=== PATIENT | male | born 1950 | race Caucasian/White ===

== ENCOUNTER 2020-06-09 12:58 | Outpatient (REF) | payer OTHER, SELFPAY ==
[2020-06-09 18:15] LABS: Alanine Aminotransferase 41 U/L (0-40); Albumin Level 4.3 g/dL (3.5-5.0); Alkaline Phosphatase 68 U/L (39-117); Anion Gap 14 (12-20); Aspartate Amino Transferase 27 U/L (5-37); Bilirubin Total 2.4 mg/dL (0.0-1.0); Blood Urea Nitrogen 21 mg/dL (9-16); Calcium 8.6 mg/dL (8.4-10.2); Carbon Dioxide 27 mmol/L (22-29); Chloride 101 mmol/L (96-108); Cholesterol 225 mg/dL; Estimated Glomerular Filt Rate > 60; Glucose Fasting 100 mg/dL (60-99); HDL Cholesterol 56 mg/dL; LDL Cholesterol Calculated 154 mg/dl; Potassium 4.7 mmol/l (3.3-5.1); Sodium 137 mmol/L (135-145); Total Protein 7.2 g/dL (6.5-8.0); Triglycerides 78 mg/dL
[2020-06-09 18:50] LABS: Prostate Specific Antigen 2.05 ng/mL (<0.05-4.0)
[2020-06-10 03:26] LABS: Estimated Average Glucose 108 mg/dL; Hemoglobin A1c % 5.4 %
== END 2020-06-09 12:59 | disposition home or self-care (01) ==
LOC: HO.MANLDS 12:58
PROVIDERS: PCP Internal Medicine; Visit Provider Internal Medicine
DX: R73.01 Impaired fasting glucose (principal); E78.00 Pure hypercholesterolemia, unspecified; N40.1 Benign prostatic hyperplasia with lower urinary tract symptoms
CPT/HCPCS: 80053; 80061; 83036; 84153

== ENCOUNTER 2020-07-17 12:44 | Outpatient (REF) | payer OTHER, MEDICARE, SELFPAY ==
--- NOTE | 2020-07-17 12:50 | US_ITS ---
EXAMINATION: US PELVIS LIMITED (BLADDER) CLINICAL INFORMATION: Incomplete bladder emptying. COMPARISON: None TECHNIQUE: Real-time imaging of the bladder. FINDINGS: Prostate gland measures approximately 4.3 x 3.5 x 4 cm. Prostate volume is approximately 32 mL. The urinary bladder is distended to an estimated volume of 305 mL. Mild amount of floating debris is present in the bladder lumen. No bladder calculi. No evidence of bladder wall thickening, mass or diverticulum. Both ureteral jets are visualized. After voiding, there is a bladder residual of 101 mL. US/US bladder IMPRESSION: * There is urinary retention with post void bladder residual of 101 mL. * Prostate gland measures approximately 4.3 x 3.5 x 4 cm.
== END 2020-07-17 12:45 | disposition home or self-care (01) ==
LOC: HO.HMGCX 12:44
PROVIDERS: PCP Internal Medicine; Visit Provider Internal Medicine
DX: R39.14 Feeling of incomplete bladder emptying (principal)
CPT/HCPCS: 76857

== ENCOUNTER 2021-09-25 07:59 | Outpatient (REF) | payer MEDICARE, OTHER, SELFPAY ==
[2021-09-25 11:34] LABS: MANUAL DIFF FLAG NO
[2021-09-25 11:48] LABS: Basophils Percent Auto 0.3 % (0-2); Eosinophils Absolute Auto 0.2 X10*3/uL (0.0-0.4); Eosinophils Percent Auto 2.2 % (0-4); Hematocrit 50.6 % (42.0-52.0); Hemoglobin 17.1 g/dl (14.0-18.0); Imm Gran Abs Auto 0.02 X10*3/uL (0.00-0.03); Imm Gran Pct Auto 0.3 % (0.0-0.4); Lymphocytes Absolute Auto 1.5 X10*3/uL (1.2-4.9); Lymphocytes Percent Auto 22.6 % (20-40); Mean Corpuscular HGB Conc 33.8 g/dl (31.0-36.0); Mean Corpuscular Hemoglobin 29.3 pg (27.0-33.0); Mean Corpuscular Volume 86.8 fL (80.0-98.0); Mean Platelet Volume 10.5 fL (9.4-12.4); Monocytes Absolute Auto 0.8 X10*3/uL (0.1-1.2); Monocytes Percent Auto 11.6 % (2-11); Neutrophils Absolute Auto 4.3 x10*3/uL (2.0-8.3); Platelet Count 228 X10*3/uL (160-400); Red Blood Count 5.83 X10*6/uL (4.60-5.80); Red Cell Distribution Width 12.8 % (11.0-16.0); White Blood Count 6.8 X10*3/uL (4.8-10.8)
[2021-09-25 12:17] LABS: Alanine Aminotransferase 31 U/L (0-40); Alkaline Phosphatase 59 U/L (39-117); Amylase 71 U/L (28-100); Anion Gap 13 (12-20); Aspartate Amino Transferase 19 U/L (5-37); Bilirubin Total 1.5 mg/dL (0.0-1.0); Blood Urea Nitrogen 22 mg/dL (9-16); Calcium 9.2 mg/dL (8.4-10.2); Carbon Dioxide 25 mmol/L (22-29); Chloride 106 mmol/L (96-108); Cholesterol 228 mg/dL; Estimated Glomerular Filt Rate > 60; Glucose Fasting 118 mg/dL (60-99); HDL Cholesterol 44 mg/dL; LDL Cholesterol Calculated 162 mg/dl; Lipase 47 U/L (8-78); Potassium 4.5 mmol/L (3.3-5.1); Sodium 139 mmol/L (135-145); Total Protein 6.9 g/dL (6.5-8.0); Triglycerides 111 mg/dL
[2021-09-25 12:21] LABS: Estimated Average Glucose 117 mg/dL; Hemoglobin A1c % 5.7 %
[2021-09-25 12:24] LABS: Prostate Specific Antigen 2.34 ng/mL (<0.05-4.0)
== END 2021-09-25 08:00 | disposition home or self-care (01) ==
LOC: HO.MANLDS 07:59
PROVIDERS: PCP Physician Assistant; Visit Provider Physician Assistant
DX: Z12.5 Encounter for screening for malignant neoplasm of prostate (principal); R10.11 Right upper quadrant pain; N40.1 Benign prostatic hyperplasia with lower urinary tract symptoms; E78.2 Mixed hyperlipidemia; R73.01 Impaired fasting glucose
CPT/HCPCS: 36415; 80053; 80061; 82150; 83036; 83690; 84153; 85025

== ENCOUNTER 2021-10-20 07:50 | Outpatient (REF) | payer MEDICARE, OTHER, SELFPAY ==
--- NOTE | ~2021-10-20 | US_ITS ---
EXAMINATION: US ABDOMEN COMPLETE CLINICAL INFORMATION: Right upper quadrant pain. COMPARISON: Bladder ultrasound dated 07/17/2020. TECHNIQUE: Real-time imaging of the abdominal viscera. FINDINGS: PANCREAS: Not well visualized due to bowel gas. ABDOMINAL AORTA: There is atherosclerotic disease. The proximal, mid, and distal segments are normal in caliber. INFERIOR VENA CAVA: Visualized portions are normal. LIVER: Liver echotexture is increased. The liver is normal in size. The liver contour is normal. No focal hepatic lesion. There is no intrahepatic biliary duct dilatation seen. GALLBLADDER: The gallbladder is physiologically distended. Multiple mobile gallstones are present. No evidence of gallbladder wall thickening or pericholecystic fluid. COMMON BILE DUCT: Normal in caliber measuring 0.2 cm in diameter. RIGHT KIDNEY: There are 2 cysts, largest measuring 2 cm in the midpole. No hydronephrosis or renal calculi. The kidney measures 10.5 cm in maximum dimension. LEFT KIDNEY: There are small peripelvic cysts, largest measuring 1 cm. No hydronephrosis or renal calculi. The kidney measures 11.1 cm in maximum dimension. SPLEEN: Normal. The spleen measures 9.7 cm in maximum dimension. FREE FLUID: None. US/US abdomen complete IMPRESSION: Echogenic liver probably representing fatty infiltration. Gallstones. Bilateral renal cysts. Limited visualization of the pancreas.
== END 2021-10-20 07:51 | disposition home or self-care (01) ==
LOC: HO.US 07:50
PROVIDERS: PCP Internal Medicine; Visit Provider Physician Assistant
DX: R10.11 Right upper quadrant pain (principal)
CPT/HCPCS: 76700

== ENCOUNTER 2022-04-21 08:22 | Outpatient (REF) | payer MEDICARE, OTHER, SELFPAY ==
[2022-04-21 11:47] LABS: Alanine Aminotransferase 51 U/L (0-40); Albumin Level 4.3 g/dL (3.5-5.0); Alkaline Phosphatase 62 U/L (39-117); Anion Gap 17 (12-20); Aspartate Amino Transferase 26 U/L (5-37); Bilirubin Total 1.9 mg/dL (0.0-1.0); Blood Urea Nitrogen 25 mg/dL (9-16); Calcium 9.8 mg/dL (8.4-10.2); Carbon Dioxide 26 mmol/L (22-29); Chloride 104 mmol/L (96-108); Cholesterol 239 mg/dL; Estimated Glomerular Filt Rate > 60; Glucose Random 136 mg/dL (60-115); HDL Cholesterol 50 mg/dL; LDL Cholesterol Calculated 175 mg/dl; Potassium 5.2 mmol/L (3.3-5.1); Sodium 142 mmol/L (135-145); Total Protein 7.1 g/dL (6.5-8.0); Triglycerides 72 mg/dL
[2022-04-21 11:48] LABS: Estimated Average Glucose 111 mg/dL; Hemoglobin A1c % 5.5 %
[2022-04-21 12:02] LABS: Vitamin B12 287 pg/mL (200-900)
[2022-04-21 12:03] LABS: Prostate Specific Antigen 2.58 ng/mL (<0.05-4.0); Vitamin D 25-OH Total 32.5 ng/mL (>30)
== END 2022-04-21 08:23 | disposition home or self-care (01) ==
LOC: HO.MANLDS 08:22
PROVIDERS: Visit Provider Internal Medicine
DX: Z00.00 Encounter for general adult medical examination without abnormal findings (principal); E78.2 Mixed hyperlipidemia; R73.01 Impaired fasting glucose; N40.1 Benign prostatic hyperplasia with lower urinary tract symptoms; Z12.5 Encounter for screening for malignant neoplasm of prostate
CPT/HCPCS: 36415; 80053; 80061; 82306; 82607; 83036; 84153

== ENCOUNTER 2023-08-31 09:21 | Outpatient (REF) | payer MEDICARE, SELFPAY ==
[2023-08-31 12:44] LABS: MANUAL DIFF FLAG NO
[2023-08-31 12:48] LABS: Basophils Percent Auto 0.3 % (0-2); Eosinophils Absolute Auto 0.2 X10*3/uL (0.0-0.4); Eosinophils Percent Auto 3.1 % (0-4); Hematocrit 49.2 % (42.0-52.0); Hemoglobin 16.5 g/dl (14.0-18.0); Imm Gran Abs Auto 0.02 X10*3/uL (0.00-0.03); Imm Gran Pct Auto 0.3 % (0.0-0.4); Lymphocytes Absolute Auto 1.3 X10*3/uL (1.2-4.9); Lymphocytes Percent Auto 20.4 % (20-40); Mean Corpuscular HGB Conc 33.5 g/dl (31.0-36.0); Mean Corpuscular Hemoglobin 29.3 pg (27.0-33.0); Mean Corpuscular Volume 87.2 fL (80.0-98.0); Mean Platelet Volume 10.4 fL (9.4-12.4); Monocytes Absolute Auto 0.7 X10*3/uL (0.1-1.2); Monocytes Percent Auto 11.5 % (2-11); Neutrophils Absolute Auto 4.1 x10*3/uL (2.0-8.3); Neutrophils Percent Auto 64.4 % (45-73); Platelet Count 227 X10*3/uL (160-400); Red Blood Count 5.64 X10*6/uL (4.60-5.80); Red Cell Distribution Width 12.7 % (11.0-16.0); White Blood Count 6.4 X10*3/uL (4.8-10.8)
[2023-08-31 12:59] LABS: Estimated Average Glucose 108 mg/dL; Hemoglobin A1C 151.6691 umol/L; Hemoglobin A1c % 5.4 % (<6.0)
[2023-08-31 13:34] LABS: Erythrocyte Sedimentation Rate 3 MM/HR (0-15)
[2023-08-31 13:42] LABS: Anion Gap 12 (12-20)
[2023-08-31 13:47] LABS: Alanine Aminotransferase 35 U/L (0-40); Albumin Level 4.1 g/dL (3.5-5.0); Alkaline Phosphatase 59 U/L (39-117); Aspartate Amino Transferase 20 U/L (5-37); Bilirubin Total 1.7 mg/dL (0.0-1.0); Blood Urea Nitrogen 22 mg/dL (9-16); C Reactive Protein 0.16 mg/dL (< or = 0.50); Calcium 9.5 mg/dL (8.4-10.2); Carbon Dioxide 25 mmol/L (22-29); Chloride 106 mmol/L (96-108); Estimated Glomerular Filt Rate > 60; Gamma Glutamyl Transpeptidase 23 U/L (11-51); Glucose Random 112 mg/dL (60-115); Iron 157 mcg/dL (45-160); Percent Iron Saturation 58 % (15-50); Potassium 4.1 mmol/L (3.3-5.1); Sodium 139 mmol/L (135-145); Total Iron Binding Capacity 271 mcg/dL (228-428); Unsaturated Iron Binding 114 ug/dL
[2023-08-31 13:58] LABS: Amylase 69 U/L (28-100)
[2023-08-31 14:03] LABS: Ferritin 385 ng/mL (20-250)
[2023-09-01 08:28] LABS: HBS Num1 0.24 mIU/mL (0-7.99); HBc Num1 0.07 S/CO (0.00-0.79); HBsAGNum1 0.39 S/CO (0.00-0.99); Hepatitis A Antibody IgM 0.12 Index (0-0.79); Hepatitis B Core Antibody Nonreactive (Nonreactive); Hepatitis B Surface Antigen Negative (Negative); ~HepC Num1 0.06 S/CO (0.00-0.79); ~Hepatitis A Antibody IgM Nonreactive (Nonreactive); ~Hepatitis B Surface Antibody NONREACTIVE (Nonreactive); ~Hepatitis C Antibody Nonreactive (Nonreactive)
== END 2023-08-31 09:22 | disposition home or self-care (01) ==
LOC: HO.MANLDS 09:21
PROVIDERS: Visit Provider Physician Assistant
DX: R10.11 Right upper quadrant pain (principal)
CPT/HCPCS: 36415; 80053; 82150; 82728; 82977; 83036; 83540; 85025; 85652; 86140; 86704; 86706; 86709; 86803; 87340

== ENCOUNTER 2024-09-19 11:10 | Outpatient (REF) | payer MEDICARE, SELFPAY ==
--- OUTSIDE RECORDS SUMMARY | 2024-09-19 13:09 | XMS_ITS | Data Portability ---
Author Organization [facility] Service Address [address] [place] [address] Assessment Encounter Date Assessment Date Assessment LastModified by Organization Details LastModified Time 11/16/2021 11/16/2021 Patient agreed and verbally consents to this audio and video Telehealth appt via a secure platform [email or web address] Not available 11/16/2021 09:50:37 08/30/2023 08/30/2023 Patient agreed and verbally consents to this audio and video Telehealth appt via a secure platform [email or web address] Not available 08/30/2023 16:39:13 Plan of Treatment Reminders Order Date Submit Date Provider Last Modified By Organization Details Last Modified Time Details Appointments ANNUAL EXAM 2024 09:30A M DR WINTER Not available Not available Not available Lab HbA1c (hemoglob in A1c), blood 2021 [facility], [address] [place] [address], [id number], 04/20/2022 12:30:55 lipid panel, blood 2021 [facility], [address] [place] [address], [id number], 04/20/2022 12:30:55 CMP, serum or plasma 2021 [facility], [address] [place] [address], [id number], 04/22/2022 12:41:19 vitamin D, 25-hydrox y, total, serum 2021 [facility], [address] [place] [address], [id number], 04/20/2022 12:30:55 vitamin B12, serum 2021 [facility], [address] [place] [address], [id number], 04/20/2022 12:30:55 PSA, serum or plasma 2021 [facility], [address] [place] [address], [id number], 04/20/2022 12:30:55 amylase + lipase, serum 2023 [facility], [address] [place] [address], [id number], 08/30/2023 16:39:44 C reactive protein, QN, serum or plasma 2023 [facility], [address] [place] [address], [id number], 08/30/2023 16:39:43 ESR (erythroc yte sedimenta tion rate), blood 2023 [facility], [address] [place] [address], [address], 08/30/2023 16:39:43 gamma-glu tamyl transfera se (ggt), serum 2023 024 [facility], [address] [place] [address], [address], 08/30/2023 16:39:44 iron + TIBC + ferritin, serum 2023 024 [facility], [address] [place] [address], [address], 08/30/2023 16:39:43 CMP, serum or plasma 2023 024 [facility], [address] [place] [address], [place], [address], 09/01/2023 12:38:39 hemoglobi n A1c, QN, blood 2023 024 [facility], [address] [place] [address], [address], 08/30/2023 16:39:43 CBC w/ auto diff 2023 024 [facility], [address] [place] [address], [id number], 08/30/2023 16:39:43 hepatitis panel (A+B+C), acute, serum 2023 024 [facility], [address] [place] [address], [address], 08/30/2023 16:39:43 Referral dermatolo gist referral 2021 [facility], [address] [place], [address], 05/10/2022 16:31:47 dermatolo gist referral 2021 [facility], [address] [facility] [address], [address], 06/14/2022 08:28:06 Procedures None recorded. Surgeries None recorded. Imaging CT, abdomen + pelvis, w/o contrast 2021 [email or web address] 10 [facility], [address] [place] [address], [address], 05/18/2022 09:55:11 CT, abdomen + pelvis, w/o contrast - hx of cholectom y 2023 [facility], [address] [place], [address], 08/31/2023 09:32:32 Medication Orders tamsulosi n 0.4 mg capsule 2021 022 [email or web address] [id number], [address] [place], [address], 05/14/2022 12:11:41 Patient TargetsNo targets recorded. Patient Instructions Encounter Date Encounter Id Patient Instructions Last Modified By Organization Details Last Modified Time 04/20/2022 [id number] prediabetes: car e instructions Not available 04/20/2022 12:26:58 actinic keratosis: care instructions Not available 04/20/2022 12:26:57 benign prostatic hyperplasia: care instructions Not available 04/20/2022 12:26:58 Reason for Referral Intraoperative Neuro Tech Referral for A ctinic keratosis Referring Physician: Robert Winter, Internal Medicine, Encounter Date: 04/20/2022 Intraoperative Neuro Tech Referral for S kin lesion new skin lesion on the left wrist, changing shape, irregular shape, possible SK Referring Physician: Lulu Hernandez, Internal Medicine, Encounter Date: 05/14/2022 Results Created Date Observation Date Name Description Value Unit Range Abnormal Flag Note LastModifiedBy Organization Detail LastModifiedTime 10/21/19 22 10/20/2021 US, abdom en No observ ation record ed. [facility] (Medical Records) [address] [place], [address], 10/23/2021 16:26:54 10/30/19 22 10/29/2021 XR, chest , 2 view No observ ation record ed. [email or web address] Not Available 2021 06:58:32 11/04/19 22 10/29/2021 XR, chest , 2 view No observ ation record ed. [email or web address] Not Available 2021 10:27:02 05/26/20 22 05/26/2022 CT, abdom en + pelvi s, w/o contr ast No observ ation record ed. [email or web address] [facility] [address] [place], [address], 05/26/2022 15:14:29 05/26/20 22 05/26/2022 CT, abdom en + pelvi s, w/o contr ast No observ ation record ed. [facility] [address], [place], [address], 05/26/2022 15:14:29 09/08/19 24 09/08/2023 CT, abdom en + pelvi s, w/o contr ast No observ ation record ed. [address] [place], [address], 10/04/2023 12:00:01 09/08/19 24 09/08/2023 CT, abdom en + pelvi s, w/ contr ast No observ ation record ed. [facility] [address] [place], [address], 10/04/2023 12:00:01 09/22/19 24 09/21/2023 MRI, liver , w/wo contr ast No observ ation record ed. [facility] [address] [place] [address], MARIYA Beard, [address], 10/04/2023 12:00:01 Result Notes None recorded. Problems Name Problem SNOMED Code Status Onset Date Resolution Date Notes Provider Name and Address Organization Details Recorded Time Hyperchole sterolemia 38543979 Active 2018 Not Available [facility] 3 12:34:17 Impaired fasting glycemia 123526467 Active 2018 Not Available [facility] 3 12:34:18 Benign prostatic hyperplasi a 778199880 Active 2018 Not Available [facility] 3 12:34:18 Acute bronchitis 73018928 Active 2021 Not Available [facility] 3 12:34:17 Cough 82178230 Active 04/11/ 2022 Not Available [facility] 3 12:34:18 COVID-19 933410493 Active 2021 Not Available [facility] 3 12:34:18 Actinic keratosis 668527827 Active 2021 Not Available [facility] 3 12:34:17 Gilbert's syndrome 41511647 Active 2021 Not Available [facility] 3 12:34:18 Abdominal pain 30968224 Active 2021 Not Available [facility] 3 12:34:18 Skin lesion 82790720 Active 2021 Not Available [facility] 3 12:34:18 Cholelithi asis without obstructio n 26345230 Active 2021 Not Available [facility] 3 12:34:18 Non-alcoho lic fatty liver 979265496 Active 2023 MONSERRAT YBARRA [address] [place], [address], [facility] 4 16:43:17 Diverticul itis 203322023 Active 2023 MONSERRAT YBARRA [address] [place], [address], [facility] 4 13:26:02 Lesion of liver 311207483 Active 2023 MONSERRAT YBARRA [address] [place], [address], [facility] 4 13:26:19 Problem Notes None recorded. Procedures Surgical History Date Name Laterality Status Provider Name and Address Organization Details Recorded Time cholecystectomy completed MONSERRAT LARIOS [address] [place], [address], [facility] 08/30/2023 16:39:52 Imaging Results Imaging Date Name Status LastModified by Organiz ation Details LastModified Time 10/20/2021 US, abdomen completed [facility] (Medical Records) [address] [place], [address], 10/23/2021 16:26:54 10/29/2021 XR, chest, 2 view completed [email or web address] Information not available 10/30/2021 06:58:32 10/29/2021 XR, chest, 2 view completed [email or web address] Information not available 11/03/2021 10:27:02 05/26/2022 CT, abdomen + pelvis, w/o contrast completed [facility] [address] [place], [address], 05/26/2022 15:14:29 05/26/2022 CT, abdomen + pelvis, w/o contrast completed [facility] [address] [place], [address], 05/26/2022 15:14:29 09/08/2023 CT, abdomen + pelvis, w/o contrast completed [address] [place], [address], 10/04/2023 12:00:01 09/08/2023 CT, abdomen + pelvis, w/ contrast completed [address] [facility] [address], [place], [address], 10/04/2023 12:00:01 09/21/2023 MRI, liver, w/wo contrast completed [address] [facility] [address] [place] [address], [place], [address], 10/04/2023 12:00:01 Procedure Notes None recorded. Medical Equipment None Reported. Allergies No known drug allergies Medications Name Sig Start Date Stop Date Status Note LastModified by Organization Details LastModified Time prednisone 20 mg tablet TAKE 3 TABLETS BY MOUTH EVERY DAY FOR 5 DAYS 11/16 completed Not Available Not Available Not Available ciprofloxac in 500 mg tablet TAKE 1 TABLET BY MOUTH EVERY 12 HOURS FOR 5 DAYS 10/04 completed Not Available Not Available Not Available tamsulosin 0.4 mg capsule TAKE 2 CAPSULES BY MOUTH EVERY DAY active Not Available Not Available No t Available benzonatate 100 mg capsule TAKE 2 CAPSULES BY MOUTH 3 TIMES A DAY NEEDED FOR COUGH. 11/16 completed Not Available Not Available Not Available betamethaso ne dipropionat e 0.05 % topical cream APPLY SPARINGLY TO AFFECTED AREA EVERY DAY 04/20 completed Not Available Not Available Not Available ibuprofen 600 mg tablet TAKE 1 TABLET BY MOUTH THREE TIMES A DAY active Not Available Not Available No t Available albuterol sulfate HFA 90 mcg/actuati on aerosol inhaler INHALE 2 PUFFS INTO THE LUNGS EVERY 4 HOURS NEEDED FOR WHEEZE 10/04 completed Not Available Not Available Not Available amoxicillin 875 mg-potassiu m clavulanate 125 mg tablet TAKE 1 TABLET BY MOUTH 2 TIMES A DAY FOR 10 DAYS. TAKE W FOOD, YOGURT, PROBIOTIC S. FINISH ALL. 11/16 completed Not Available Not Available Not Available oxycodone 5 mg tablet TAKE 1 TABLET BY MOUTH EVERY 4 HOURS NEEDED FOR SEVERE PAIN 10/04 completed Not Available Not Available Not Available Mona Gutierrez [facility] spacer USE DIRECTED 04/20 completed Not Available Not Available Not Available Shingrix (PF) 50 mcg/0.5 mL intramuscul ar suspension, kit 07/09 completed Not Available Not Available Not Available Fluzone High-Dose Quad 2020-21 (PF) 240 mcg/0.7 mL IM syringe 06/09 completed Not Available Not Available Not Available Flowflex COVID-19 Antigen Home Test kit COVID TEST 04/20 completed Not Available Not Available Not Available Paxlovid 300 mg (150 mg x 2)-100 mg tablets in a dose pack TAKE 3 TABLETS TWICE A DAY BY ORAL ROUTE FOR 5 DAYS. 04/20 completed Not Available Not Available Not Available Vitals Date Recorded Body height Body mass index (BMI) Body weight Heart rate Oxygen saturation Oxygen saturation in Arterial blood by Pulse oximetry Systolic blood pressure Diastolic blood pressure Provider Name and Address Organization Details Last Updated DateTime 2 174.63 cm 24.1 kg/m2 08175.9 6 g 84 /min 98 % 98 % 132 mm[Hg] 72 mm[Hg] [facility] 2 12:03:45 Date Recorded Body height Oxygen saturation Oxygen saturation in Arterial blood by Pulse oximetry Heart rate Systolic blood pressure Diastolic blood pressure Provider Name and Address Organization Details Last Updated DateTime 2 174.63 cm 98 % 98 % 82 /min 122 mm[Hg] 70 mm[Hg] Karli Murphy [facility] 2 11:48:32 Date Recorded Body height Body mass index (BMI) Body weight Heart rate Oxygen saturation Oxygen saturation in Arterial blood by Pulse oximetry Systolic blood pressure Diastolic blood pressure Provider Name and Address Organization Details Last Updated DateTime 4 174.63 cm 22.9 kg/m2 06477.1 5 g 98 /min 98 % 98 % 122 mm[Hg] 76 mm[Hg] Robert Winter, DO [address] [place], [address], [facility] 4 11:51:19 Social History Question Answer Notes LastModified by Organizat ion Details LastModified Time Tobacco Smoking Status Never Smoker Not Available [facility] 06/10/2020 03:36:24 What Was The Date Of Your Most Recent Tobacco Screening? 10/04/2023 Information not available 10/04/2023 Sex: Unknown Functional Status None recorded. Mental Status None recorded. Family History Nothing Reported Notes:Family history CAD- fa shannan member not noted in paper chart Medical History No medical history recorded. Immunizations Vaccine Type Date Status Note Provider Nam e and Address Organization Details Recorded Time COVID-19, mRNA, LNP-S, PF, 100 mcg/0.5mL dose or 50 mcg/0.25mL dose 1 completed Karli pyle [facility] 04/10/2021 16:09:56 COVID-19, mRNA, LNP-S, PF, 100 mcg/0.5mL dose or 50 mcg/0.25mL dose 1 completed Karli pyle [facility] 04/10/2021 16:10:05 zoster, unspecified formulation 3 completed Isha pyle [facility] 10/08/2022 13:35:00 Influenza, split virus, quadrivalent, preservative 9 completed Isha pyle [facility] 07/25/2019 15:46:22 Influenza, split virus, quadrivalent, preservative 0 completed Dwight Winter lashanda [facility] 06/09/2020 11:48:23 zoster recombinant 0 completed Isha Meadows [facility] 07/09/2020 13:39:32 Past Encounters Encounter ID Performer Location Encounter Start Date Encounter Closed Date Diagnosis/Indication Diagnosis SNOMED-CT Code Diagnosis ICD10 Code Diagnosis Note [id number] Robert Winter [facility] [address] [facility], [place] [address] 10/31/2018 10:40:34 10/31/2018 11:54:38 Right lower quadrant pain 381237385 R10.31 will order his UA and US of his renal area will also check lab no fever or chill assoc with this Acute uppe r respiratory infection 14706955 J06.9 will cont to tx conserv as we feel this is viral recc he use mucinex Benign pro static hyperplasia 179318528 N40.1 [id number] Robert Winter [facility] [address] [facility],[place] [address] 12/06/2018 11:50:17 12/06/2018 13:46:09 Impaired fasting glycemia 518915810 R73.01 currently completely stable no elevations Hypercholesterolemia 136 69388 E78.00 also good and ok until next year Benign pro static hyperplasia 858452776 N40.1 flomax [id number] Robert Winter [facility] [address] [facility], [place] [address] 07/25/2019 15:40:22 07/25/2019 16:22:49 Ophthalmic migraine 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.B0 acute case has never had before seen in [place] CT neg will ask neuro for eval Cough 81562410 R05 no major findings will tx conserv and follow as necess [id number] Robert Winter [facility] [address] [facility],[place] [address] 06/09/2020 11:49:26 06/09/2020 12:11:53 Impaired fasting glycemia 291131683 R73.01 currently completely stable no elevations Hypercholesterolemia 136 27623 E78.00 also good and ok until next year Benign pro static hyperplasia 495983644 N40.1 flomax [id number] Robert TamLorraine Winter [facility] [address] [facility] [address] [address] 07/09/2020 13:37:49 07/09/2020 13:56:48 Impaired fasting glycemia 183847058 R73.01 currently completely stable no elevations a1c 5.4 Hypercholesterolemia 136 31621 E78.00 also good and ok until next year Hepatitis C screening 41 8046415 Z11.59 Incomplete emptying of urinary bladder 394685930 R39.14 [id number] Robert TurciosLorraine Winter [facility] [address] [facility] [address] [address] 09/08/2020 10:51:49 09/08/2020 14:22:33 Abdominal pain 54260751 R10.9 will have him obtain lab and then order CT scan has had signiifica nt wgt loss [id number] MONSERRAT YBARRA [facility] [address] [facility] [address] [address] 04/10/2021 15:50:01 04/14/2021 11:09:17 Plaque psoriasis 987628755 L40.0 will trial steriod cream betamethas one will call her [facility] tuesday for sooner appt [id number] MONSERRAT YBARRA [facility] [address] [facility] [address] [address] 09/23/2021 08:54:29 09/23/2021 13:48:59 Right upper quadrant pain 730898945 R10.11 check US and labs for gallbladde r Benign pro static hyperplasia 264173423 N40.1 will re Hypercholesterolemia 136 20549 E78.2 will recheck cholestero l Impaired f asting glycemia 398338874 R73.01 will recheck A1c [id number] MONSERRAT YBARRA [facility] [address] [facility] [address] [address] 11/16/2021 08:52:45 11/16/2021 15:33:14 Cough 63791334 R05.3 will fu with update in two weeks Acute bronchitis 7977121 2 J20.8 resolved [id number] Robert Winter DO [facility] [address] [facility] [address] [place] [address] 04/20/2022 11:53:33 04/20/2022 12:30:58 Active or passive immunization 926020479 Z23 Adult heal th examination 957822358 Z00.00 Hypercholesterolemia 136 49015 E78.2 also good and ok until next year Impaired f asting glycemia 657849277 R73.01 currently completely stable no elevations a1c 5.4 Benign pro static hyperplasia 829533459 N40.1 flomax helps but wishes to try to take two tabs to help empty better Actinic keratosis 417177 007 L57.0 [id number] MONSERRAT YBARRA [facility] [address] [facility], [address] [facility] [place] [address] 05/14/2022 11:27:36 05/14/2022 13:58:06 Abdominal pain 06455929 R10.[address] up [address] abdomen and pelvis Skin lesion 54433851 L98 .9 will set up with [place] [id number] MONSERRAT YBARRA [facility] [address] [facility] [address] [place] [address] 08/30/2023 08:29:22 08/30/2023 16:48:10 Abdominal pain 04821663 R10.11 repeat imaging since new onset RUQ pain after removal of gallbladde r two years agowill also need bwwill come to our lab Gilbert's syndrome 95058 000 E80.4 stable for awhile, rechecking levelshas CPE on 09/13 Non-alcoho lic fatty liver 916266299 K76.0 will re-evaluat e status [id number] Robert Winter DO [facility] [address] [facility] [address] [address] 10/04/2023 11:46:22 10/04/2023 13:43:43 Active or passive immunization 177046290 Z23 utd Adult heal th examination 987378370 Z00.00 doing great some kyphosis but he is active and walking and has lost some weight Hypercholesterolemia 136 71447 E78.2 also good and ok until next year Impaired chadwick asting glycemia 970131301 R73.01 currently completely stable no elevations a1c 5.4 Health Concerns Section Related Observation LastModified by Organization Detai ls LastModified Time None Recorded Concern Status LastModified by Organization Details LastModified Time None Recorded Advance Directives Directive None Recorded Payers Encounter Date Sequence Insurance Name Policy Number Policy Lopez Covered Member ID Lopez Member ID Guarantor Name 11/16/2021 1 MEDICARE B-AR: [employer] Ronnie Courtney Kaiser [id number] Ronnie Courtney Kaiser 11/16/2021 2 COMMONWEALTH INDEMNITY PLAN - UNICARE [id number] Magdalena P Kaiser [id number] Ronnie Courtney Kaiser 04/20/2022 1 MEDICARE B-AR: [employer] Ronnie Courtney Kaiser [id number] Ronnie Courtney Kaiser 04/20/2022 2 COMMONWEALTH INDEMNITY PLAN - [employer] [id number] Magdalena P Kaiser [id number] Ronnie Courtney Kaiser 05/14/2022 1 MEDICARE B-AR: [employer] Ronnie Courtney Kaiser [id number] Ronnie Courtney Kaiser 05/14/2022 2 COMMONWEALTH INDEMNITY PLAN - [employer]ARE [id number] Magdalena P Kaiser [id number] Ronnie Courtney Kaiser 08/30/2023 1 MEDICARE B-AR: [employer] Ronnie Courtney Kaiser [id number] Ronnie Courtney Kaiser 08/30/2023 2 COMMONWEALTH INDEMNITY PLAN - [employer] [id number] Magdalena P Kaiser [id number] Ronnie Courtney Kaiser 10/04/2023 1 MEDICARE B-AR: [employer] Ronnie Courtney Kaiser [id number] Ronnie Courtney Kaiser 10/04/2023 2 COMMONWEALTH INDEMNITY PLAN - [employer]ICARE [id number] Magdalena P Kaiser [id number] Ronnie Courtney Kaiser Notes Date Note Type Note Provider Name a nd Address Organization Details Recorded Time 2 text/html f/u tele-med phone callpatient consents to phone call went to for on-going cough, sob, and chest tightnessthe patient reports that they did an XR, wasn't clear about whether pna or notstarted on augmentin and cough suppressentcough continues, but improvedgiven chronic cough after viral infection is being seen more in my practice and have discussed such with Dr. Pascal, it is likely the cough will resolve on it's on own but will have him call with an update in two weeks MONSERRAT YBARRA [address] [place], [address], [facility] 11/16/2021 09:51:42 2 text/html Annual WellnessReported bypatient.Diet and Nutrition:healthy diet Fracture Risk:no history of fractures; no recent explained fracture; no sudden unexplained fractures; no previous musculoskeletal injuries Physical Activity:exercises on a regular basis; recent increase in physical activity; good physical condition Additional Lifestyle Factors:no tobacco use; no alcohol intake; stopped drinking alcohol Depression Risk:never feels sad, empty, or tearful; no loss of interest in activities; no significant changes in weight; no sleep disturbances or insomnia; no agitation; no loss of energy; no feelings of worthlessness or guilt; no thoughts of suicide; no history of depression; no history of mood disorders Hearing: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 Vision:no vision problems here for cpe feels well and is doing ok overall Robert Winter DO [address] [place], [address], [facility] 04/20/2022 12:30:22 2 text/html c/o continuing right abdominal pain the patient reports that he is still having right sided flank painfullness in the right upper quadrantalso has RLQ pain as wellunrelated pains, happen at different timesno correlation does not find certain things that cause the pain at this timeUS this winter was normal will try CT for further eval has new skin lesionbooked out to Claudia casper with new derm MONSERRAT YBARRA [address] [place], [address], [facility] 05/14/2022 12:21:31 4 text/html c/o abdominal pain The patient is participating in this appointment via telemedicine communication with a phone call/video calling service ([employer])The patient consents to use of these platforms in place of an in-person appointment due to either sick symptoms the patient is presenting with or current office closure due to COVID exposure in order to keep our office staff and patients safe the patient reports fullness on the right upper quadrantthe patient reports that it happens more after he eatsdoesn't matter what he eatsdoes have a hx of cholecystectomy (saw back in 2021 for abdominal pain, had stones, had gallbladder removed with [facility])does have hx of fatty liver and gilbert's syndrome, could be inflammation of the liver, having difficulties adapting to loss of gallbladderthe patient reports that his bowel movements are normal and urination good no changesno more gas production than usual, not bloatedno GERD symptoms, no dysphagia agreed to fu with repeat imagingwill also have lab work drawn on patient MONSERRAT YBARRA [address] [place], [address], [facility] [facility] 08/30/2023 16:45:20 4 text/html Annual WellnessReported bypatient.Diet and Nutrition:healthy diet Fracture Risk:no history of fractures; no recent explained fracture; no sudden unexplained fractures; no previous musculoskeletal injuries Physical Activity:exercises on a regular basis; recent increase in physical activity; good physical condition Additional Lifestyle Factors:no tobacco use; no alcohol intake; stopped drinking alcohol Depression Risk:never feels sad, empty, or tearful; no loss of interest in activities; no significant changes in weight; no sleep disturbances or insomnia; no agitation; no loss of energy; no feelings of worthlessness or guilt; no thoughts of suicide; no history of depression; no history of mood disorders Hearing:no loss of hearing Vision:no vision problems Robert Winter DO [address] [place], [address], [facility] 10/04/2023 12:14:06
--- OUTSIDE RECORDS SUMMARY | 2024-09-19 13:09 | XMS_ITS | Clinical Summary ---
[facility] [address] [place] [address] Care Team Providers Care Entry Level Account Representative Name Role Phone Unavailable Primary Care Provider Unavailabl e Social History Tobacco Use Types Packs/Day Years Used Date Smoking Tobacco: Never Assessed Sex and Gender Information Value Date Recorded Sex Assigned at Not on file Legal Sex Male 12:54 PM EST Gender Identity Not on file Sexual Orientation Not on file Plan of Treatment Health Maintenance Due Date Last Done Comments DTaP,Tdap,and Td Vaccines (1 - Tdap) 11/12/1970 Pneumococcal Vaccine: 50+ Ye ars (1 of 1 - PCV) 11/12/2001 Zoster Vaccines (1 of 2) 11/12/2001 COVID-19 Vaccine ( - 2023-2 5 season) 2024 Influenza Vaccine (#1) 2024 RSV Immunization Patients 60 + Years Old (1 - 1-dose 75+ series) 11/12/2026 HIB Vaccines Aged Out No longer eligi ble based on patient's age to complete this topic HPV Vaccines Aged Out No longer eligi ble based on patient's age to complete this topic Hepatitis A Vaccines Aged Out No long er eligible based on patient's age to complete this topic Hepatitis B Vaccines Aged Out No long er eligible based on patient's age to complete this topic IPV Vaccines Aged Out No longer eligi ble based on patient's age to complete this topic MMR Vaccines Aged Out No longer eligi ble based on patient's age to complete this topic Meningococcal ACWY Vaccine Aged Out N o longer eligible based on patient's age to complete this topic Meningococcal B Vacine Aged Out No lo nger eligible based on patient's age to complete this topic RSV Immunization Patients Un edith 20 months Aged Out No longer eligible b ased on patient's age to complete this topic Varicella Vaccines Aged Out No longer eligible based on patient's age to complete this topic
[2024-09-19 14:56] LABS: Prostate Specific Antigen 4.08 ng/mL (<0.05-4.0)
== END 2024-09-19 11:11 | disposition home or self-care (01) ==
LOC: HO.MANLDS 11:10
PROVIDERS: Visit Provider Internal Medicine
DX: Z12.5 Encounter for screening for malignant neoplasm of prostate (principal); N40.1 Benign prostatic hyperplasia with lower urinary tract symptoms
CPT/HCPCS: 36415; 84153

== ENCOUNTER 2024-10-09 09:56 | Outpatient (REF) | payer MEDICARE, SELFPAY ==
--- OUTSIDE RECORDS SUMMARY | 2024-10-09 11:54 | XMS_ITS | Continuity of Care Document ---
Author Organization [facility], [facility] Address [address] [place] [address] [place] [address] Assessment No assessment recorded. Plan of Treatment Reminders Order Date Submit Date Provider Last Modified By Organization Details Last Modified Time Details Appointments ANNUAL EXAM 2024 09:30A M DR WINTER Not available Not available Not available ANNUAL EXAM 2025 09:[address] M [address] WINTER Not available Not available Not available Lab HbA1c (hemoglob in A1c), blood 2024 025 [facility], [address] [place] [address], [id number], 10/09/2024 09:49:36 lipid panel, blood 2024 025 [facility], [address] [place] [address], [id number], 10/09/2024 09:49:36 CMP, serum or plasma 2024 025 [facility], [address] [place] [address], [id number], 10/09/2024 09:49:36 CBC 2024 025 [facility], [address] [place] [address], [id number], 10/09/2024 09:49:36 Referral None recorded. Procedures None recorded. Surgeries None recorded. Imaging None recorded. Medication Orders tamsulosi n 0.4 mg capsule 2024 025 [id number], [address] [place], [address], 10/09/2024 09:43:36 Patient TargetsNo targets recorded. Patient Instructions Encounter Date Encounter Id Patient Instructions Last Modified By Organization Details Last Modified Time 10/09/2024 [id number] benign prostatic hyperplasia: care instructions Not available 10/09/2024 09:43:34 Reason for Referral None Reported. Problems Name Problem SNOMED Code Status Onset Date Resolution Date Notes Provider Name and Address Organization Details Recorded Time Hyperchole sterolemia 64587762 Active 2018 Not Available [facility] 3 12:34:17 Impaired fasting glycemia 188946881 Active 2018 Not Available [facility] 3 12:34:18 Benign prostatic hyperplasi a 018609491 Active 2018 Not Available [facility] 3 12:34:18 Acute bronchitis 85784770 Active 2021 Not Available [facility] 12:34:17 Cough 95638470 Active 2021 Not Available [facility] 3 12:34:18 COVID-19 078247167 Active 2021 Not Available [facility] 12:34:18 Actinic keratosis 440517509 Active 2021 Not Available [facility] 3 12:34:17 Gilbert's syndrome 96723172 Active 2021 Not Available [facility] 3 12:34:18 Abdominal pain 85493019 Active 2021 Not Available [facility] 3 12:34:18 Skin lesion 77490142 Active 2021 Not Available [facility] 3 12:34:18 Cholelithi asis without obstructio n 20352878 Active 2021 Not Available [facility] 3 12:34:18 Non-alcoho lic fatty liver 546931357 Active 2023 MONSERRAT YBARRA [address] [place], [address], [facility] 4 16:43:17 Diverticul itis 538457210 Active 2023 MONSERRAT YBARRA [address] [place], [address], [facility] 4 13:26:02 Lesion of liver 729686992 Active 2023 MONSERRAT YBARRA [address] [place], [address], [facility] 4 13:26:19 Problem Notes None recorded. Procedures Surgical History Date Name Laterality Status Provider Name and Address Organization Details Recorded Time cholecystectomy completed MONSERRAT LARIOS [address] [place], [address], [facility] 08/30/2023 16:39:52 Imaging Results None recorded. Procedure Notes None recorded. Medical Equipment None [...] TAKE 2 CAPSULES BY MOUTH EVERY DAY 2024 active Not Available Not Available Not Avai lable benzonatate 100 mg capsule TAKE 2 CAPSULES [...] Available Not Available Not Available Mona Gutierrez [facility] spacer USE DIRECTED 04/20 completed Not Available [...] and Address Organization Details Last Updated DateTime 5 174.63 cm 23.6 kg/m2 44539.7 5 g 88 /min 98 % 98 % 126 mm[Hg] 82 mm[Hg] Kelsie Sands MA [facility] 5 09:31:31 Social History Question Answer Notes LastModified by Organizat ion Details LastModified Time Tobacco Smoking Status Never Smoker Not Available [facility] 06/10/2020 03:36:24 What Was The Date Of Your Most Recent Tobacco Screening? 10/09/2024 [email or web address] Information not available 10/09/2024 Sex: Unknown Functional Status None recorded. Mental Status None recorded. Family History Nothing Reported Notes:Family history CAD- fa shannan member not noted in paper chart Medical History No medical history recorded. Immunizations Vaccine Type Date Status Note Provider Nam e and Address Organization Details Recorded Time COVID-19, mRNA, LNP-S, PF, 100 mcg/0.5mL dose or 50 mcg/0.25mL dose 1 completed MARIYA [facility] 04/10/2021 16:09:56 COVID-19, mRNA, LNP-S, PF, 100 mcg/0.5mL dose or 50 mcg/0.25mL dose 1 completed Karli pyle [facility] 04/10/2021 16:10:05 zoster, unspecified formulation 3 completed Isha [facility]ows [facility] 10/08/2022 13:35:00 Influenza, split virus, quadrivalent, preservative 9 completed Isha [facility] 07/25/2019 15:46:22 Influenza, split virus, quadrivalent, preservative 0 completed Dwight Winter [facility] 06/09/2020 11:48:23 zoster recombinant 0 completed Isha [facility] 07/09/2020 13:39:32 Past Encounters Encounter ID Performer Location Encounter Start Date Encounter Closed Date Diagnosis/Indication Diagnosis SNOMED-CT Code Diagnosis ICD10 Code Diagnosis Note [id number] Robert Winter [facility] [address] [address] 10/09/2024 09:22:46 10/09/2024 11:31:20 Active or passive immunization 529580421 Z23 utd Adult heal th examination 446079152 Z00.00 doing great some kyphosis but he is active and walking and has lost some weight Hypercholesterolemia 136 98884 E78.2 also good and ok until next year Impaired f asting glycemia 650997794 R73.01 currently completely stable no elevations a1c 5.4 Benign pro static hyperplasia 944824405 N40.1 flomax helps but wishes to try to take two tabs to help empty better Health Concerns Section Related Observation LastModified by Organization Detai ls LastModified Time None Recorded Concern Status LastModified by Organization Details LastModified Time None Recorded Payers Encounter Date Sequence Insurance Name Policy Number Policy Lopez Covered Member ID Lopez Member ID Guarantor Name 10/09/2024 1 [place]ICARE [place]: [employer] Ronnie Kaiser [id number] Ronnie Kaiser 10/09/2024 2 [facility] INDEMNITY PLAN - [facility] [id number] Magdalena Kaiser [id number] Ronnie Kaiser Notes Date Note Type Note Provider Name a nd Address Organization Details Recorded Time 5 text/html Annual WellnessReported bypatient.Diet and Nutrition:healthy diet [...] Hearing:no loss of hearing Vision:no vision problems staying busy in [facility] Robert Winter, DO [address] [place], [address], [facility] 10/09/2024 09:55:00
--- OUTSIDE RECORDS SUMMARY | 2024-10-09 11:54 | XMS_ITS | Clinical Summary ---
[facility] Organization [facility] Address [address] [place] [address] Care Team Providers Care Risk Control Analyst Name Role Phone Unavailable Primary Care Provider [...]
--- OUTSIDE RECORDS SUMMARY | 2024-10-09 11:54 | XMS_ITS | Data Portability ---
Author Organization [facility] Address [address] [place] [address] Assessment Encounter Date Assessment Date Assessment LastModified by Organization Details LastModified Time 08/30/2023 08/30/2023 Patient agreed and verbally consents [...] HbA1c (hemoglob in A1c), blood 2024 025 [facility], [address] [place] [address], [address], 10/09/2024 09:49:36 lipid panel, blood 2024 025 [facility], [address] [place] [address], [id number], 10/09/2024 09:49:36 CMP, serum or plasma 2024 025 [facility], [address] [place] [address], [address], 10/09/2024 09:49:36 CBC 2024 025 [facility], [address] [place] [address], [address], 10/09/2024 09:49:36 amylase + lipase, serum 2023 024 [facility], [address] [place] [address], [address], 08/30/2023 16:39:44 C reactive protein, QN, serum or plasma 2023 024 [facility], [address] [place] [address], [address], 08/30/2023 16:39:43 ESR (erythroc yte sedimenta tion rate), blood 2023 024 [facility], [address] [place] [address], [address], 08/30/2023 16:39:43 gamma-glu tamyl transfera se (ggt), serum 2023 024 [facility], [address] [place] [address], [address], 08/30/2023 16:39:44 iron + TIBC + ferritin, serum 2023 [facility], [address] [place] [address], [address], 08/30/2023 16:39:43 CMP, serum or plasma 2023 024 [facility], [address] [place] [address], [address], 09/01/2023 12:38:39 hemoglobi n A1c, QN, blood 2023 024 [facility], [address] [place] [address], [address], 08/30/2023 16:39:43 CBC w/ auto diff 2023 024 [facility], [address] [place] [address], [address], 08/30/2023 16:39:43 hepatitis panel (A+B+C), acute, serum 2023 024 [facility], [address] [place] [address], [address], 08/30/2023 16:39:43 HbA1c (hemoglob in A1c), blood 2021 [facility], [address] [place] [address], [address], 04/20/2022 12:30:55 lipid panel, blood 2021 [facility], [address] [place] [address], [address], 04/20/2022 12:30:55 CMP, serum or plasma 2021 [facility], [address] [place] [address], [address], 04/22/2022 12:41:19 vitamin D, 25-hydrox y, total, serum 2021 [facility], [address] [place] [address], [address], 04/20/2022 12:30:55 vitamin B12, serum 2021 [facility], [address] [place] [address], [address], 04/20/2022 12:30:55 PSA, serum or plasma 2021 [facility], [address] [place] [address], [address], 04/20/2022 12:30:55 Referral dermatolo gist referral 2021 [facility], [address], [place], [address], 06/14/2022 08:28:06 dermatolo gist referral 2021 022 [facility], [address], [place], [address], 05/10/2022 16:31:47 Procedures None recorded. Surgeries None recorded. Imaging CT, abdomen + pelvis, w/o contrast - hx of cholectom y 2023 024 [facility], [address] [place], [address], 08/31/2023 09:32:32 CT, abdomen + pelvis, w/o contrast 2021 022 [email or web address] 10 [facility], [address] [place], [address], 05/18/2022 09:55:11 Medication Orders tamsulosi n 0.4 mg capsule 2024 025 [facility], [address] [place], [address], 10/09/2024 09:43:36 tamsulosi n 0.4 mg capsule 2021 022 [email or web address], [address] [place], [address], 05/14/2022 12:11:41 Patient TargetsNo targets recorded. Patient Instructions Encounter Date Encounter Id Patient Instructions Last Modified By Organization Details Last Modified Time 04/20/2022 [id number] prediabetes: car e instructions Not available 04/20/2022 12:26:58 actinic keratosis: care instructions Not available 04/20/2022 12:26:57 benign prostatic hyperplasia: care instructions Not available 04/20/2022 12:26:58 10/09/2024 [id number] benign prostatic hyperplasia: care instructions Not available 10/09/2024 09:43:34 Reason for Referral Driveway Attendant Referral for A ctinic keratosis Referring Physician: Robert Winter, Internal Medicine, Encounter Date: 04/20/[address] Attendant Referral for S kin lesion new skin lesion on the left wrist, changing shape, irregular shape, possible SK Referring Physician: Lulu Hernandez, Internal Medicine, Encounter Date: 05/14/2022 Results Created Date Observation Date Name Description Value Unit Range Abnormal Flag Note LastModifiedBy Organization Detail LastModifiedTime 05/26/20 22 05/26/2022 CT, abdom en + pelvi s, w/o contr ast No observ ation record ed. [facility] [address] [place], [address], 05/26/2022 15:14:29 05/26/20 22 05/26/2022 CT, abdom en + pelvi s, w/o contr ast No observ ation record ed. [facility] [address] [place], [address], 05/26/2022 15:14:29 09/08/19 24 09/08/2023 CT, abdom en + pelvi s, w/o contr ast No observ ation record ed. [facility] [address] [place], [address], 10/04/2023 12:00:01 09/08/19 24 09/08/2023 CT, abdom en + pelvi s, w/ contr ast No observ ation record ed. [facility] [address] [place], [address], 10/04/2023 12:00:01 09/22/19 24 09/21/2023 MRI, liver , w/wo contr ast No observ ation record ed. [facility] [address] [place] [address] , MARIYA Beard, [address], 10/04/2023 12:00:01 Result Notes None recorded. Problems Name Problem SNOMED Code Status Onset Date Resolution Date Notes Provider Name and Address Organization Details Recorded Time Hyperchole sterolemia 37249144 Active 2018 Not Available [facility] 3 12:34:17 Impaired fasting glycemia 347240304 Active 2018 Not Available [facility] 3 12:34:18 Benign prostatic hyperplasi a 270506846 Active 2018 Not Available [facility] 3 12:34:18 Acute bronchitis 37467963 Active 2021 Not Available [facility] 3 12:34:17 Cough 67338396 Active 2021 Not Available [facility] 3 12:34:18 COVID-19 816740533 Active 2021 Not Available [facility] 3 12:34:18 Actinic keratosis 385077052 Active 2021 Not Available [facility] 3 12:34:17 Gilbert's syndrome 60155688 Active 2021 Not Available [facility] 3 12:34:18 Abdominal pain 79061916 Active 2021 Not Available [facility] 3 12:34:18 Skin lesion 30800053 Active 2021 Not Available [facility] 3 12:34:18 Cholelithi asis without obstructio n 31335662 Active 2021 Not Available [facility] 3 12:34:18 Non-alcoho lic fatty liver 366464486 Active 2023 MONSERRAT YBARRA [address] [place] [address], [address], [facility] 4 16:43:17 Diverticul itis 277378581 Active 2023 MONSERRAT YBARRA [address] [place], [address], [facility] 4 13:26:02 Lesion of liver 918731315 Active 2023 MONSERRAT YBARRA [address] [place], [address], [facility] 13:26:19 Problem Notes None recorded. Procedures Surgical History Date Name Laterality Status Provider Name and Address Organization Details Recorded Time cholecystectomy completed MONSERRAT LARIOS [address] [place], [address], [facility] 08/30/2023 16:39:52 Imaging Results Imaging Date Name Status LastModified by Organiz ation Details LastModified Time 05/26/2022 CT, abdomen + pelvis, w/o contrast completed [facility] [address] [place], [address], 05/26/2022 15:14:29 05/26/2022 CT, abdomen + pelvis, w/o contrast completed [facility] [address] [place], [address], 05/26/2022 15:14:29 09/08/2023 CT, abdomen + pelvis, w/o contrast completed [address] [place], [address], 10/04/2023 12:00:01 09/08/2023 CT, abdomen + pelvis, w/ contrast completed [address] [facility] [address] [place], [address], 10/04/2023 12:00:01 09/21/2023 MRI, liver, w/wo contrast completed [address] - [facility] [address] [place] [address], [place], [address], 10/04/2023 12:00:01 Procedure Notes None recorded. Medical [...] Available Not Available Not Available Mona Gutierrez [facility] spacer USE DIRECTED 04/20 completed [...] Updated DateTime 2 174.63 cm 24.1 kg/m2 02422.9 6 g 84 /min 98 % 98 % 132 mm[Hg] 72 mm[Hg] Aggie Oconnell [place] - [facility] 2 12:03:45 Date Recorded Body height Oxygen saturation Oxygen saturation in Arterial blood by Pulse oximetry Heart rate Systolic blood pressure Diastolic blood pressure Provider Name and Address Organization Details Last Updated DateTime 2 174.63 cm 98 % 98 % 82 /min 122 mm[Hg] 70 mm[Hg] Karli Murphy [facility] 2 11:48:32 Date Recorded Body height Body mass index (BMI) Body weight Heart rate Oxygen saturation Oxygen saturation in Arterial blood by Pulse oximetry Systolic blood pressure Diastolic blood pressure Provider Name and Address Organization Details Last Updated DateTime 4 174.63 cm 22.9 kg/m2 77341.1 5 g 98 /min 98 % 98 % 122 mm[Hg] 76 mm[Hg] Robert Winter, DO [address] [place], [address] , [facility] 4 11:51:19 Date Recorded Body height Body mass index (BMI) Body weight Heart rate Oxygen saturation Oxygen saturation in Arterial blood by Pulse oximetry Systolic blood pressure Diastolic blood pressure Provider Name and Address Organization Details Last Updated DateTime 5 174.63 cm 23.6 kg/m2 99467.7 5 g 88 /min 98 % 98 % 126 mm[Hg] 82 mm[Hg] Kelsie Sands [facility] 5 09:31:31 Social History Question Answer Notes LastModified by Organizat ion Details LastModified Time Tobacco Smoking Status Never Smoker Not Available [facility] 06/10/2020 03:36:24 What Was The Date Of [...] 50 mcg/0.25mL dose 1 completed Karli pyle [facility] 04/10/2021 16:09:56 COVID-19, mRNA, LNP-S, PF, 100 mcg/0.5mL dose or 50 mcg/0.25mL dose 1 completed Karli pyle [facility] 04/10/2021 16:10:05 zoster, unspecified formulation 3 [facility] 13:35:00 Influenza, split virus, quadrivalent, preservative 9 completed Isha pyle [facility] 07/25/2019 15:46:22 Influenza, split virus, quadrivalent, preservative 0 completed [facility] 06/09/2020 11:48:23 zoster recombinant 0 completed Isha [facility] 07/09/2020 13:39:32 Past Encounters Encounter ID Performer Location Encounter Start Date Encounter Closed Date Diagnosis/Indication Diagnosis SNOMED-CT Code Diagnosis ICD10 Code Diagnosis Note [id number] Robert Winter [facility] Internal [facility] [address] [facility] [employer] [facility] [place] [address] 10/31/2018 10:40:34 10/31/2018 11:54:38 Right lower quadrant pain 768501054 R10.31 will order his UA and US of his renal area will also check lab no fever or chill assoc with this Acute uppe r respiratory infection 81780959 J06.9 will cont to tx conserv as we feel this is viral recc he use mucinex Benign pro static hyperplasia 629233878 N40.1 [id number] Robert Winter [facility] Internal Medicine [address] [facility],[employer] [place] [address] 12/06/2018 11:50:17 12/06/2018 13:46:09 Impaired fasting glycemia 961968490 R73.01 currently completely stable no elevations Hypercholesterolemia 136 62250 E78.00 also good and ok until next year Benign pro static hyperplasia 920807074 N40.1 flomax [id number] Robert Winter [facility] Internal Medicine [address] [facility],[place] [address] 07/25/2019 15:40:22 07/25/2019 16:22:49 Ophthalmic migraine 97272616 G43.B0 acute case has never had before seen in [place] [facility] CT neg will ask neuro for eval Cough 18126203 R05 no major findings will tx conserv and follow as necess [id number] Robert Winter [facility] Internal Medicine [address] [facility] [place] [address] 06/09/2020 11:49:26 06/09/2020 12:11:53 Impaired fasting glycemia 545085362 R73.01 currently completely stable no elevations Hypercholesterolemia 136 25626 E78.00 also good and ok until next year Benign pro static hyperplasia 106908376 N40.1 flomax [id number] Robert Winter [facility] Internal Medicine [address] [facility] [address] [place] [address] 07/09/2020 13:37:49 07/09/2020 13:56:48 Impaired fasting glycemia 342458462 R73.01 currently completely stable no elevations a1c 5.4 Hypercholesterolemia 136 51653 E78.00 also good and ok until next year Hepatitis C screening 41 6547831 Z11.59 Incomplete emptying of urinary bladder 898159521 R39.14 [id number] Robert Winter [facility] [address] [facility],[place] [address] 09/08/2020 10:51:49 09/08/2020 14:22:33 Abdominal pain 36542711 R10.9 will have him obtain lab and then order CT scan has had signiifica nt wgt loss [id number] MONSERRAT YBARRA [facility] [address] [facility] [address] [place] [address] 04/10/2021 15:50:01 04/14/2021 11:09:17 Plaque psoriasis 856890003 L40.0 will trial steriod cream betamethas one will call her bettendorf derm tuesday for sooner appt [id number] MONSERRAT YBARRA [facility] [address] [facility] [address] [place] [address] 09/23/2021 08:54:29 09/23/2021 13:48:59 Right upper quadrant pain 344700154 R10.11 check US and labs for gallbladde r Benign pro static hyperplasia 614908489 N40.1 will re Hypercholesterolemia 136 11261 E78.2 will recheck cholestero l Impaired f asting glycemia 031727032 R73.01 will recheck A1c [id number] MONSERRAT YBARRA [facility] [address] [facility] [address] [address],[place] [address] 11/16/2021 08:52:45 11/16/2021 15:33:14 Cough 57104781 R05.3 will fu with update in two weeks Acute bronchitis 2673749 2 J20.8 resolved [id number] Robert Winter, [facility] [address] [facility] [address] [place] [address] 04/20/2022 11:53:33 04/20/2022 12:30:58 Active or passive immunization 336558464 Z23 Adult heal th examination 518574931 Z00.00 Hypercholesterolemia 136 74418 E78.2 also good and ok until next year Impaired f asting glycemia 553399428 R73.01 currently completely stable no elevations a1c 5.4 Benign pro static hyperplasia 518627958 N40.1 flomax helps but wishes to try to take two tabs to help empty better Actinic keratosis 973832 007 L57.0 [id number] MONSERRAT YBARRA [facility] [address] [facility] [address] [address],[place] [address] 05/14/2022 11:27:36 05/14/2022 13:58:06 Abdominal pain 90833625 R10.[address] up [address] abdomen and pelvis Skin lesion 42615073 L98 .9 will set up with [facility] [id number] MONSERRAT YBARRA [facility] [address] [facility] [address] [place] [address] 08/30/2023 08:29:22 08/30/2023 16:48:10 Abdominal pain 45712238 R10.11 repeat imaging since new onset RUQ pain after removal of gallbladde r two years agowill also need bwwill come to our lab Gilbert's syndrome 73090 000 E80.4 stable for awhile, rechecking levelshas CPE on 09/13 Non-alcoho lic fatty liver 307355683 K76.0 will re-evaluat e status [id number] Robert Winter [facility] Internal Medicine [address] [facility],[place] [address] 10/04/2023 11:46:22 10/04/2023 13:43:43 Active or passive immunization 790798211 Z23 utd Adult heal th examination 713273974 Z00.00 doing great some kyphosis but he is active and walking and has lost some weight Hypercholesterolemia 136 56320 E78.2 also good and ok until next year Impaired f asting glycemia 083827436 R73.01 currently completely stable no elevations a1c 5.4 [id number] Robert Winter, [facility] Internal Medicine [address] [facility],[place] [address] 10/09/2024 09:22:46 10/09/2024 11:31:20 Active or passive immunization 654609902 Z23 utd Adult heal th examination 662419988 Z00.00 doing great some kyphosis but he is active and walking and has lost some weight Hypercholesterolemia 136 18041 E78.2 also good and ok until next year Impaired f asting glycemia 939520988 R73.01 currently completely stable no elevations a1c 5.4 Benign pro static hyperplasia 570894548 N40.1 flomax helps but wishes to try to take two tabs to help empty better Health Concerns Section Related Observation LastModified by Organization Detai ls LastModified Time None Recorded Concern Status LastModified by Organization Details LastModified Time None Recorded Advance Directives Directive None Recorded Payers Encounter Date Sequence Insurance Name Policy Number Policy Lopez Covered Member ID Lopez Member ID Guarantor Name 04/20/2022 1 [place] [employer] Ronnie Kaiser [id number] Ronnie Kaiser 04/20/2022 2 [facility] - [facility] [id number] Magdalena Kaiser [id number] Ronnie Kaiser 05/14/2022 1 [place] [facility] Ronnie Kaiser [id number] Ronnie Courtney Kaiser 05/14/2022 2 [facility] [id number] Magdalena Mccartyy [id number] Ronnie Courtney Kaiser 08/30/2023 1 MEDIC[place]: [facility] Ronnie Kaiser [id number] 0 Ronnie Courtney Kaiser 08/30/2023 2 [facility] [id number] Magdalena Roblero Kaiser [id number] Ronnie Courtney Kaiser 10/04/2023 1 [place]: [facility] Ronnie Kaiser [id number] Ronnie Courtney Kaiser 10/04/2023 2 [facility] [id number] Magdalena Roblero Kaiser [id number] Ronnie Courtney Kaiser 10/09/2024 1 [place]IC[place]: [facility] Ronnie Kaiser [id number] 0 Ronnie Courtney Kaiser 10/09/2024 2 [facility] [id number] Magdalena Roblero Kaiser [id number] Ronnie Kaiser Notes Date Note Type Note Provider Name a nd Address Organization Details Recorded Time 2 text/html Annual WellnessReported bypatient.Diet and Nutrition:healthy [...] well and is doing ok overall Robert Winter, DO [address] [facility], [place], [address], [facility] 04/20/2022 12:30:22 2 text/html c/o [...] eval has new [facility] lesion[facility] derm MONSERRAT YBARRA [address] [place], [address], [facility] 05/14/2022 12:21:31 4 text/html c/o abdominal pain The patient is participating in this appointment via telemedicine communication with a phone call/video calling service (Opez)The patient consents to use of these platforms [...] pain, had stones, had gallbladder removed with [facility])does have hx of fatty liver and gilbert's syndrome, could be inflammation of the liver, having difficulties adapting to loss of gallbladderthe patient reports that his bowel movements are normal and urination good no changesno more gas production than usual, not bloatedno GERD symptoms, no dysphagia agreed to fu with repeat imagingwi also have lab work drawn on patient MONSERRAT YBARRA [address] [place], [address], [facility] 08/30/2023 16:45:20 4 text/html Annual [...] hearing Vision:no vision problems Robert Winter DO [address] [place] [address], [address], [facility] 10/04/2023 12:14:06 5 text/html Annual WellnessReported bypatient.Diet and Nutrition:healthy [...] hearing Vision:no vision problems staying busy in [facility] Robert Winter DO [address] [place] [address], [address], [facility] 10/09/2024 09:55:00
[2024-10-09 13:41] LABS: MANUAL DIFF FLAG NO
[2024-10-09 13:54] LABS: Basophils Percent Auto 0.4 % (0-2); Eosinophils Absolute Auto 0.1 X10*3/uL (0.0-0.4); Eosinophils Percent Auto 1.6 % (0-4); Imm Gran Abs Auto 0.04 X10*3/uL (0.00-0.03); Imm Gran Pct Auto 0.5 % (0.0-0.4); Lymphocytes Absolute Auto 1.3 X10*3/uL (1.2-4.9); Lymphocytes Percent Auto 15.9 % (20-40); Mean Corpuscular Hemoglobin 29.8 pg (27.0-33.0); Mean Corpuscular Volume 87.6 fL (80.0-98.0); Mean Platelet Volume 10.6 fL (9.4-12.4); Monocytes Absolute Auto 0.9 X10*3/uL (0.1-1.2); Monocytes Percent Auto 10.3 % (2-11); Neutrophils Absolute Auto 5.9 x10*3/uL (2.0-8.3); Neutrophils Percent Auto 71.3 % (45-73); Platelet Count 217 X10*3/uL (160-400); Red Blood Count 5.71 X10*6/uL (4.60-5.80); White Blood Count 8.2 X10*3/uL (4.8-10.8)
[2024-10-09 14:29] LABS: Alanine Aminotransferase 72 U/L (0-40); Albumin Level 4.1 g/dL (3.5-5.0); Alkaline Phosphatase 68 U/L (39-117); Anion Gap 13 (12-20); Aspartate Amino Transferase 49 U/L (5-37); Blood Urea Nitrogen 20 mg/dL (9-16); Calcium 8.9 mg/dL (8.4-10.2); Carbon Dioxide 25 mmol/L (22-29); Chloride 106 mmol/L (96-108); Cholesterol 230 mg/dL (<200); Estimated Glomerular Filt Rate > 60; Glucose Random 120 mg/dL (60-115); HDL Cholesterol 54 mg/dL (>40); LDL Cholesterol Calculated 149 mg/dL (<100); Potassium 4.2 mmol/L (3.3-5.1); Sodium 140 mmol/L (135-145); Total Protein 7.7 g/dL (6.5-8.0); Triglycerides 137 mg/dL (<150)
[2024-10-09 15:45] LABS: Estimated Average Glucose 111 mg/dL; Hemoglobin A1C 159.3424 umol/L; Hemoglobin A1c % 5.5 % (<6.0); Total Hemoglobin (HGBA1C) 4324.2218 umol/L
== END 2024-10-09 09:57 | disposition home or self-care (01) ==
LOC: HO.MANLDS 09:56
PROVIDERS: Visit Provider Internal Medicine
DX: E78.2 Mixed hyperlipidemia (principal); R73.01 Impaired fasting glucose
CPT/HCPCS: 36415; 80053; 80061; 83036; 85025